=== PATIENT | male | born 1995 | race American Indian/Alaskan Native ===

== ENCOUNTER 2016-11-18 23:16 | Emergency (ER) | payer SELFPAY | END 2016-11-19 01:35 | disposition left against medical advice (07) | LOC: ED 23:16 | DX: Z76.0 Encounter for issue of repeat prescription (principal); Z53.21 Procedure and treatment not carried out due to patient leaving prior to being seen by health care provider ==

== ENCOUNTER 2016-11-19 16:06 | Emergency (ER) | payer SELFPAY ==
[2016-11-19 16:18] VITALS: BP 125/73
--- NOTE | 2016-11-19 18:59 | Emergency Department Report ---
HPI - General Chief Complaint: Medical Clearance Time Seen by Provider: 11/19/16 17:39 - HPI HPI: 21-year-old male presents today for refill of Prozac, Risperdal and trazodone. Patient was seen at [facility] on 10/08/2016 and was started on the above-listed medications. Patient states he does not currently have a psychiatrist or psychologist he follows up with. Denies any medical complaints. Denies fever, chills, nausea, vomiting, chest pain, shortness of breath, abdominal pain. ED Past Medical Hx - Past Medical History Previous Medical History?: Yes Hx Psychiatric Treatment: Yes (PTSD,Bipolar, Schizophrenia, Anxiety) - Surgical History Past Surgical History?: Yes Additional Surgical History: Impacted [place] Teeth Removal - Social History Smoking Status: Current Every Day Smoker Substance Use Type: Alcohol - Medications Home Medications: Home Medications Medication Instructions Recorded Confirmed Last Taken Type FLUoxetine [PROzac] 20 mg PO QDAY #30 capsule 11/19/16 Unknown Rx risperiDONE [RisperDAL] 2 mg PO QDAY #30 tablet 11/19/16 Unknown Rx traZODone [Desyrel] 100 mg PO QHS #30 tablet 11/19/16 Unknown Rx ED Review of Systems ROS: Stated complaint: RX REFILL Other details as noted in HPI Constitutional: denies: chills, fever, malaise Eyes: denies: eye pain ENT: denies: ear pain, throat pain, congestion Respiratory: denies: cough, shortness of breath, wheezing Cardiovascular: denies: chest pain, palpitations Endocrine: no symptoms reported Gastrointestinal: denies: abdominal pain, nausea, vomiting Neurological: denies: headache, weakness Physical Exam - Physical Exam Vital Signs: Vital Signs 11/19/16 16:14 Temperature 97.7 F Pulse Rate 100 H Respiratory 20 Rate Blood Pressure 125/73 O2 Sat by Pulse 98 Oximetry Physical Exam: GENERAL: The patient is well-developed and well-nourished. Patient is in NAD. HEAD: Normocephalic. Atraumatic. CHEST/LUNGS: Clear to auscultation throughout. HEART/CARDIOVASCULAR: Regular rate and rhythm. ABDOMEN: Abdomen is soft, nontender. Bowel sounds normoactive. No guarding or rebound tenderness. EXTREMITIES: Peripheral pulses intact. Capillary refill less than 2 seconds. NEURO: Alert and oriented x 3. Normal gait. ED Course Vital Signs 11/19/16 16:14 Temperature 97.7 F Pulse Rate 100 H Respiratory 20 Rate Blood Pressure 125/73 O2 Sat by Pulse 98 Oximetry ED Medical Decision Making - Lab Data Vital Signs 11/19/16 16:14 Temperature 97.7 F Pulse Rate 100 H Respiratory 20 Rate Blood Pressure 125/73 O2 Sat by Pulse 98 Oximetry - Medical Decision Making 21-year-old male presents today for a medication refill of Prozac, Risperdal and trazodone. Patient is in no acute distress at this time. He will be discharged home and is encouraged to follow up with a primary care provider. Consulted with Dr. Salguero, his medications will be refilled today. He is encouraged to return to the emergency room for any worsening symptoms. Critical care attestation.: If time is entered above; I have spent that time in minutes in the direct care of this critically ill patient, excluding procedure time. ED Disposition Clinical Impression: Medication refill Disposition: DISCHARGED TO HOME OR SELFCARE Is pt being admited?: No Does the pt Need Aspirin: No Condition: Stable Additional Instructions: Follow-up with primary care provider. Return to the emergency department if symptoms worsen. Prescriptions: traZODone [Desyrel] 100 mg PO QHS #30 tablet FLUoxetine [PROzac] 20 mg PO QDAY #30 capsule risperiDONE [RisperDAL] 2 mg PO QDAY #30 tablet Referrals: APOORVA BARAJAS MD [Primary Care Provider] - 3-5 Days SEA TIAN MD [Referring] - 3-5 Days ELIS JONES MD [Staff Physician] - 3-5 Days Forms: Work/School Release Form(ED) Time of Disposition: 18:57
== END 2016-11-19 19:12 | disposition home or self-care (01) ==
LOC: ED 16:06
DX: Z76.0 Encounter for issue of repeat prescription (principal); F31.9 Bipolar disorder, unspecified; F20.9 Schizophrenia, unspecified; F17.200 Nicotine dependence, unspecified, uncomplicated
CPT/HCPCS: 99281

== ENCOUNTER 2017-03-18 01:15 | Emergency (ER) | payer SELFPAY ==
[2017-03-18 01:46] VITALS: BP 132/75
== END 2017-03-18 01:45 | disposition left against medical advice (07) ==
LOC: EEVIPCON 01:15 → ED 01:15
DX: R06.7 Sneezing (principal); L29.9 Pruritus, unspecified; Z53.21 Procedure and treatment not carried out due to patient leaving prior to being seen by health care provider

== ENCOUNTER 2017-03-24 09:59 | Emergency (ER) | payer SELFPAY ==
--- NOTE | 2017-03-24 11:38 | Emergency Department Report ---
ED Rash HPI - HPI Chief Complaint: Pain General Stated Complaint: CHEST PAIN Time Seen by Provider: 03/24/17 10:43 Duration: week Location: Neck, Chest, Back, Abdomen, Lower Extremities Suspected Cause: Insect Rash Symptoms: Yes Itching, No Facial Swelling, No Tongue/Oral Swelling, No Breathing Difficulties, No Choking Sensation, No Wheezing/Dyspnea, No Peeling, No Blistering, No Fever, No Lightheaded, No Malaise, No Myalgias Severity: mild ED Review of Systems ROS: Stated complaint: CHEST PAIN Other details as noted in HPI Comment: Unobtainable due to pts medical conditions Constitutional: no symptoms reported, see HPI Eyes: as per HPI ENT: as per HPI Respiratory: no symptoms reported, see HPI Cardiovascular: as per HPI Endocrine: no symptoms reported, see HPI Gastrointestinal: as per HPI Genitourinary: as per HPI Musculoskeletal: as per HPI Skin: as per HPI, rash Neurological: as per HPI Psychiatric: as per HPI Hematological/Lymphatic: as per HPI ED Past Medical Hx - Past Medical History Previous Medical History?: Yes Hx Psychiatric Treatment: Yes (PTSD,Bipolar, Schizophrenia, Anxiety) - Surgical History Past Surgical History?: Yes Additional Surgical History: Impacted [place] Teeth Removal; jaw sx 2016 - Social History Smoking Status: Current Some Day Smoker Substance Use Type: Alcohol - Medications Home Medications: Home Medications Medication Instructions Recorded Confirmed Last Taken Type FLUoxetine [PROzac] 20 mg PO QDAY #30 capsule 11/19/16 Unknown Rx risperiDONE [RisperDAL] 2 mg PO QDAY #30 tablet 11/19/16 Unknown Rx traZODone [Desyrel] 100 mg PO QHS #30 tablet 11/19/16 Unknown Rx Permethrin [Elimite] 60 gm TP ONCE #1 cream..g. 03/24/17 Unknown Rx Rash Exam - Exam General: Vital signs noted. No distress. Alert and acting appropriately. HEENT: No Periorbital Edema, No Conjuctival Injection, No Chemosis, No Perioral Edema, No Tongue Edema, No Uvular Edema, No Compromised Airway, No Drooling Lungs: Yes Good Air Exchange, No Wheezes, No Ronchi, No Stridor, No Cough, No Labored Respirations, No Retractions, No Use of Accessory Muscles, No Other Abnormal Lung Sounds Heart: Yes Regular, No Murmur Skin: Yes Erythema, Yes Other (known bed bugs), No Urticarial Rash, No Maculopapular Rash, No Morbilliform rash, No Bulla(e), No Excoriations, No Weeping, No Tenderness, No Edema, No Encrustations ED Course Vital Signs 03/24/17 10:05 Temperature 97.7 F Pulse Rate 72 Respiratory 16 Rate Blood Pressure 104/77 O2 Sat by Pulse 96 Oximetry Critical care attestation.: If time is entered above; I have spent that time in minutes in the direct care of this critically ill patient, excluding procedure time. ED Disposition Clinical Impression: Scabies Disposition: DC-01 TO HOME OR SELFCARE Is pt being admited?: No Does the pt Need Aspirin: No Condition: Stable Instructions: Insect Bite or Sting (ED), Scabies (ED) Additional Instructions: clean home and clothes Prescriptions: Permethrin [Elimite] 60 gm TP ONCE #1 cream..g. Referrals: PRIMARY CARE, [Primary Care Provider] - 3-5 Days Forms: Work/School Release Form(ED) Time of Disposition: 11:37
[2017-03-24 11:48] VITALS: BP 118/70
== END 2017-03-24 12:06 | disposition home or self-care (01) ==
LOC: ED 09:59
DX: B86 Scabies (principal); F17.200 Nicotine dependence, unspecified, uncomplicated
CPT/HCPCS: 99282

== ENCOUNTER 2018-11-29 15:55 | Emergency (ER) | payer OTHER ==
--- NOTE | 2018-11-29 16:43 | Emergency Department Report ---
Chief Complaint: Chest Pain Stated Complaint: CHEST PAIN Time Seen by Provider: 11/29/18 16:37 - HPI History of Present Illness: This is a 23 y.o. male that presents to the ER with chest pain x 2 weeks. Current cigar smoker 1 a day. - Exam Vital Signs: Vital Signs 11/29/18 16:37 Temperature 98.1 F Pulse Rate 80 Respiratory 20 Rate Blood Pressure 136/66 O2 Sat by Pulse 98 Oximetry MSE screening note: Focused history and physical exam performed. Due to findings the following was ordered: CXR and EKG ACC for further evaluation. ED Disposition for MSE Condition: Stable
--- NOTE | 2018-11-29 18:24 | XRay Report ---
PROCEDURE: XR CHEST ROUTINE 2V TECHNIQUE: PA and lateral views of the chest HISTORY: Chest Pain COMPARISONS: None FINDINGS: There is no evidence of infiltrate, pneumothorax or pleural fluid collection. The cardiomediastinal silhouette is normal in appearance. The bony structures are unremarkable. IMPRESSION: 1. Normal study. This document is electronically signed by Aura Thakkar MD., November 29 2018 06:21:53 PM ET
--- NOTE | 2018-11-29 20:39 | Emergency Department Report ---
- General Chief Complaint: Chest Pain Stated Complaint: CHEST PAIN Time Seen by Provider: 11/29/18 16:37 Source: patient Mode of arrival: Ambulatory Limitations: No Limitations - History of Present Illness Initial Comments: 23-year-old -German male reports he was department complaining of a three-week history of waxing and waning cough, congestion, sore throat with occasional nausea. No fever, chills, sweats, palpitations MD Complaint: cough, sore throat, rhinorrhea, nasal congestion -: week(s) (3) Severity: mild Quality: dull Consistency: constant Improves With: nothing Worsens With: nothing Associated Symptoms: cough. denies: myalgias, diaphoresis, rhinorrhea, nasal congestion, shortness of breath, vomiting, diarrhea, confusion, right sweats, weight loss, hoarseness, ear pain - Related Data Previous Rx's Medication Instructions Recorded Last Taken Type FLUoxetine [PROzac] 20 mg PO QDAY #30 capsule 11/19/16 Unknown Rx risperiDONE [RisperDAL] 2 mg PO QDAY #30 tablet 11/19/16 Unknown Rx traZODone [Desyrel] 100 mg PO QHS #30 tablet 11/19/16 Unknown Rx Permethrin [Elimite] 60 gm TP ONCE #1 cream..g. 03/24/17 Unknown Rx Azithromycin [Zithromax] 500 mg PO QDAY #3 tablet 11/29/18 Unknown Rx guaiFENesin/CODEINE [Robitussin AC] 5 ml PO Q6H PRN #120 ml 11/29/18 Unknown Rx Allergies Allergy/AdvReac Type Severity Reaction Status Date / Time No Known Allergies Allergy Verified 11/29/18 16:37 ED Review of Systems ROS: Stated complaint: CHEST PAIN Other details as noted in HPI Constitutional: denies: chills, fever Eyes: denies: eye pain, eye discharge, vision change ENT: denies: ear pain, throat pain Respiratory: denies: cough, shortness of breath, wheezing Cardiovascular: denies: chest pain, palpitations Endocrine: no symptoms reported Gastrointestinal: denies: abdominal pain, nausea, diarrhea Genitourinary: denies: urgency, dysuria Musculoskeletal: denies: back pain, joint swelling, arthralgia Skin: denies: rash, lesions Neurological: denies: headache, weakness, paresthesias Psychiatric: denies: anxiety, depression Hematological/Lymphatic: denies: easy bleeding, easy bruising ED Past Medical Hx - Past Medical History Hx Psychiatric Treatment: Yes (PTSD,Bipolar, Schizophrenia, Anxiety) - Surgical History Additional Surgical History: Impacted [place] Teeth Removal; jaw sx 2016 - Social History Smoking Status: Current Every Day Smoker Substance Use Type: None - Medications Home Medications: Home Medications Medication Instructions Recorded Confirmed Last Taken Type FLUoxetine [PROzac] 20 mg PO QDAY #30 capsule 11/19/16 Unknown Rx risperiDONE [RisperDAL] 2 mg PO QDAY #30 tablet 11/19/16 Unknown Rx traZODone [Desyrel] 100 mg PO QHS #30 tablet 11/19/16 Unknown Rx Permethrin [Elimite] 60 gm TP ONCE #1 cream..g. 03/24/17 Unknown Rx Azithromycin [Zithromax] 500 mg PO QDAY #3 tablet 11/29/18 Unknown Rx guaiFENesin/CODEINE [Robitussin AC] 5 ml PO Q6H PRN #120 ml 11/29/18 Unknown Rx ED Physical Exam - General Limitations: No Limitations General appearance: alert, in no apparent distress - Head Head exam: Present: atraumatic, normocephalic - Eye Eye exam: Present: normal appearance, PERRL, EOMI Pupils: Present: normal accommodation - ENT ENT exam: Present: normal exam, normal orophraynx, mucous membranes moist, other (extremities very swollen and erythematous. There is no exudate. Tongue and uvula are midline. This is nasals cavity is congested as well, right greater than left, small effusion behind the right tympanic membrane.) - Neck Neck exam: Present: normal inspection, full ROM - Respiratory Respiratory exam: Present: normal lung sounds bilaterally. Absent: respiratory distress, rales, rhonchi - Cardiovascular Cardiovascular Exam: Present: regular rate, normal rhythm. Absent: systolic murmur, diastolic murmur, rubs, gallop - GI/Abdominal GI/Abdominal exam: Present: soft, normal bowel sounds - Rectal Rectal exam: Present: deferred - Extremities Exam Extremities exam: Present: normal inspection - Back Exam Back exam: Present: normal inspection - Neurological Exam Neurological exam: Present: alert, oriented X3 - Psychiatric Psychiatric exam: Present: normal affect, normal mood - Skin Skin exam: Present: warm, dry, intact, normal color. Absent: rash ED Course Vital Signs 11/29/18 11/29/18 16:37 20:51 Temperature 98.1 F Pulse Rate 80 88 Respiratory 20 16 Rate Blood Pressure 136/66 Blood Pressure 122/71 [Left] O2 Sat by Pulse 98 99 Oximetry Critical care attestation.: If time is entered above; I have spent that time in minutes in the direct care of this critically ill patient, excluding procedure time. ED Disposition Clinical Impression: Pharyngitis, Cough Disposition: DC-01 TO HOME OR SELFCARE Is pt being admited?: No Does the pt Need Aspirin: No Condition: Stable Instructions: Upper Respiratory Infection (ED), Cold Symptoms (ED) Prescriptions: guaiFENesin/CODEINE [Robitussin AC] 5 ml PO Q6H PRN #120 ml PRN Reason: Cough Azithromycin [Zithromax] 500 mg PO QDAY #3 tablet Referrals: JEANNETTE DELGADO MD [Primary Care Provider] - 3-5 Days Forms: Work/School Release Form(ED)
[2018-11-29 20:51] VITALS: BP 122/71
== END 2018-11-29 20:51 | disposition home or self-care (01) ==
LOC: ED 15:55
DX: J02.9 Acute pharyngitis, unspecified (principal); R05 Cough; F31.9 Bipolar disorder, unspecified; F20.9 Schizophrenia, unspecified; F17.200 Nicotine dependence, unspecified, uncomplicated; F43.10 Post-traumatic stress disorder, unspecified; Z79.899 Other long term (current) drug therapy
CPT/HCPCS: 71046; 93005; 93010; 99282

== ENCOUNTER 2020-09-06 01:50 | Emergency (ER) | payer SELFPAY ==
--- NOTE | 2020-09-06 02:28 | XRay Report ---
CHEST 2 VIEWS INDICATION / CLINICAL INFORMATION: Productive cough for 2 weeks. COMPARISON: 04/29/19. FINDINGS: SUPPORT DEVICES: None. HEART / MEDIASTINUM: The heart size and pulmonary vasculature are normal. LUNGS / PLEURA: No significant pulmonary or pleural abnormality. No pneumothorax. ADDITIONAL FINDINGS: No significant additional findings. IMPRESSION: No acute abnormality or significant change. There is no evidence of pneumonia. Signer Name: Tim Martinez MD Signed: 09/06/2020 2:23 AM Workstation Name: [id number]
--- NOTE | 2020-09-06 02:35 | Emergency Department Report ---
- General Chief Complaint: Extremity Injury, Upper Stated Complaint: BACK HURTS/CANT GET RID OF COLD Source: patient Mode of arrival: Ambulatory Limitations: No Limitations - History of Present Illness Initial Comments: Patient is a 25-year-old -[place] male with a history of PTSD, anxiety and depression, bipolar disorder and schizophrenia who presents to the ED with complaint of acute onset persistent nasal and sinus congestion, frontal sinus pressure, persistent dry cough, diffuse body aches and pains and lack of appetite for the last 2 weeks, worse in the last 5 days. Patient states that he tested positive for COVID-19 viral infection about 2 months ago and thinks that his current symptoms may be due to another COVID-19 viral infection. Patient states that no one else at home has had similar symptoms except his daughter that also has had upper respiratory infection symptoms. Patient denies dizziness, syncope, chest pain, shortness of breath, sore throat, nausea and vomiting or diarrhea, abdominal pain, change in vision, dysuria, hematuria, urinary frequency and urgency her back pain. MD Complaint: cough, sore throat, rhinorrhea, nasal congestion, sinus pain, other (Diffuse body aches and pains) -: Sudden, week(s) (2) Severity: moderate Severity scale (0 -10): 6 Quality: dull, aching Consistency: constant Improves With: nothing Worsens With: nothing Context: sick contacts Associated Symptoms: denies other symptoms, fever, chills, myalgias, headache, rhinorrhea, nasal congestion, cough. denies: diaphoresis, sore throat, stiff neck, chest pain, shortness of breath, abdominal pain, nausea, vomiting, diarrhea, dysuria, rash, confusion, weight loss, hoarseness, ear pain, other Treatments Prior to Arrival: "cold medicine" - Related Data Previous Rx's Medication Instructions Recorded Last Taken Type FLUoxetine [PROzac] 20 mg PO QDAY #30 capsule 11/19/16 Unknown Rx risperiDONE [RisperDAL] 2 mg PO QDAY #30 tablet 11/19/16 Unknown Rx traZODone [Desyrel] 100 mg PO QHS #30 tablet 11/19/16 Unknown Rx Permethrin [Elimite] 60 gm TP ONCE #1 cream..g. 03/24/17 Unknown Rx Azithromycin [Zithromax] 500 mg PO QDAY #3 tablet 11/29/18 Unknown Rx guaiFENesin/CODEINE [Robitussin AC] 5 ml PO Q6H PRN #120 ml 11/29/18 Unknown Rx Acetaminophen [Tylenol] 500 mg PO Q6HR PRN #30 tablet 09/06/20 Unknown Rx Amoxicillin [Trimox CAP] 500 mg PO Q8H #30 capsule 09/06/20 Unknown Rx Benzonatate [Tessalon Perles] 100 mg PO Q8HR #30 capsule 09/06/20 Unknown Rx Cetirizine HCl [Zyrtec 10mg tab] 10 mg PO DAILY #30 tablet 09/06/20 Unknown Rx Allergies Allergy/AdvReac Type Severity Reaction Status Date / Time No Known Allergies Allergy Verified 11/29/18 16:37 ED Review of Systems ROS: Stated complaint: BACK HURTS/CANT GET RID OF COLD Other details as noted in HPI Constitutional: malaise. denies: chills, fever Eyes: denies: eye pain, eye discharge, vision change ENT: congestion, other (Frontal sinus pressure and headache). denies: ear pain, throat pain Respiratory: cough. denies: shortness of breath, wheezing Cardiovascular: denies: chest pain, palpitations Endocrine: no symptoms reported Gastrointestinal: denies: abdominal pain, nausea, vomiting, diarrhea Genitourinary: denies: urgency, dysuria Musculoskeletal: denies: back pain, joint swelling, arthralgia Skin: denies: rash, lesions Neurological: headache. denies: weakness, paresthesias Psychiatric: denies: anxiety, depression Hematological/Lymphatic: denies: easy bleeding, easy bruising ED Past Medical Hx - Past Medical History Previous Medical History?: Yes Hx Psychiatric Treatment: Yes (PTSD,Bipolar, Schizophrenia, Anxiety) Additional medical history: heart murmur - Surgical History Past Surgical History?: Yes Additional Surgical History: Impacted [place] Teeth Removal; jaw sx 2016 - Social History Smoking Status: Current Every Day Smoker - Medications Home Medications: Home Medications Medication Instructions Recorded Confirmed Last Taken Type FLUoxetine [PROzac] 20 mg PO QDAY #30 capsule 11/19/16 Unknown Rx risperiDONE [RisperDAL] 2 mg PO QDAY #30 tablet 11/19/16 Unknown Rx traZODone [Desyrel] 100 mg PO QHS #30 tablet 11/19/16 Unknown Rx Permethrin [Elimite] 60 gm TP ONCE #1 cream..g. 03/24/17 Unknown Rx Azithromycin [Zithromax] 500 mg PO QDAY #3 tablet 11/29/18 Unknown Rx guaiFENesin/CODEINE [Robitussin AC] 5 ml PO Q6H PRN #120 ml 11/29/18 Unknown Rx Acetaminophen [Tylenol] 500 mg PO Q6HR PRN #30 tablet 09/06/20 Unknown Rx Amoxicillin [Trimox CAP] 500 mg PO Q8H #30 capsule 09/06/20 Unknown Rx Benzonatate [Tessalon Perles] 100 mg PO Q8HR #30 capsule 09/06/20 Unknown Rx Cetirizine HCl [Zyrtec 10mg tab] 10 mg PO DAILY #30 tablet 09/06/20 Unknown Rx ED Physical Exam - General Limitations: No Limitations General appearance: alert, in no apparent distress - Head Head exam: Present: atraumatic, normocephalic, normal inspection - Eye Eye exam: Present: normal appearance, PERRL, EOMI Pupils: Present: normal accommodation - ENT ENT exam: Present: normal orophraynx, mucous membranes moist, TM's normal bilaterally, normal external ear exam, other (Grossly congested nasal passages) - Neck Neck exam: Present: normal inspection, full ROM. Absent: tenderness, meningismus, lymphadenopathy, thyromegaly - Respiratory Respiratory exam: Present: normal lung sounds bilaterally. Absent: respiratory distress, wheezes, rales, rhonchi, stridor, chest wall tenderness, accessory muscle use, decreased breath sounds, prolonged expiratory - Cardiovascular Cardiovascular Exam: Present: normal rhythm, tachycardia, normal heart sounds. Absent: systolic murmur, diastolic murmur, rubs, gallop - GI/Abdominal GI/Abdominal exam: Present: soft, normal bowel sounds. Absent: tenderness, guarding, rebound, hyperactive bowel sounds, hypoactive bowel sounds, organomegaly - Extremities Exam Extremities exam: Present: normal inspection, full ROM, normal capillary refill - Back Exam Back exam: Present: normal inspection, full ROM. Absent: tenderness, CVA tenderness (R), CVA tenderness (L), muscle spasm, paraspinal tenderness, vertebral tenderness - Neurological Exam Neurological exam: Present: alert, oriented X3, CN II-XII intact, normal gait, reflexes normal - Psychiatric Psychiatric exam: Present: normal affect, normal mood, anxious - Skin Skin exam: Present: warm, dry, intact, normal color. Absent: rash ED Course Vital Signs 09/06/20 09/06/20 02:00 03:02 Temperature 99.1 F Pulse Rate 111 H 98 H Respiratory 16 20 Rate Blood Pressure 148/82 Blood Pressure 149/80 [Right] O2 Sat by Pulse 95 98 Oximetry ED Medical Decision Making - Radiology Data Radiology results: report reviewed Chest x-ray shows no acute cardiopulmonary abnormalities or pneumonitis. - Medical Decision Making This is a 25-year-old -[place] male with a history of PTSD, anxiety and depression, bipolar disorder and schizophrenia who presents to the ED with complaint of acute onset persistent nasal and sinus congestion, frontal sinus pressure, persistent dry cough, diffuse body aches and pains and lack of appetite for the last 2 weeks, worse in the last 5 days. Patient states that he tested positive for COVID-19 viral infection about 2 months ago and thinks that his current symptoms may be due to another COVID-19 viral infection. Patient states that no one else at home has had similar symptoms except his daughter that also has had upper respiratory infection symptoms. In the ED, patient is alert and oriented x3 and is not in any distress, afebrile and tachycardic and with oxygen saturation of 95% to 97% in room air. Chest x-ray shows no acute cardiopulmonary abnormalities or pneumonitis. On reevaluation, patient tachycardia resolved and patient will discharge home on medications and advised to follow-up with his primary care physician in 7 to 10 days for reevaluation or return to the ED immediately if symptoms get worse. - Differential Diagnosis Bronchitis; URI; pneumonia; influenza; viral syndrome; COVID-19 Critical care attestation.: If time is entered above; I have spent that time in minutes in the direct care of this critically ill patient, excluding procedure time. ED Disposition Clinical Impression: Acute upper respiratory infection, Acute non-recurrent frontal sinusitis Acute bronchitis Qualifiers: Bronchitis organism: other organism Qualified Code(s): J20.8 - Acute bronchitis due to other specified organisms Disposition: DC-01 TO HOME OR SELFCARE Is pt being admited?: No Does the pt Need Aspirin: No Condition: Stable Instructions: Sinusitis, Adult, [id number], Acute Bronchitis, Adult, [id number], Upper Respiratory Infection, Adult, [id number], Acute Bronchitis (ED) Additional Instructions: Take medication with food, drink plenty of fluids and follow-up with your primary care physician in 7 to 10 days for reevaluation. Return to the ED immediately if your symptoms get worse. Prescriptions: Acetaminophen [Tylenol] 500 mg PO Q6HR PRN #30 tablet PRN Reason: Pain , Severe (7-10) Benzonatate [Tessalon Perles] 100 mg PO Q8HR #30 capsule Amoxicillin [Trimox CAP] 500 mg PO Q8H #30 capsule Cetirizine HCl [Zyrtec 10mg tab] 10 mg PO DAILY #30 tablet Referrals: [facility] [Provider Group] - 7-10 days Time of Disposition: 02:37 Print Language: MOZAMBICAN
[2020-09-06 03:03] VITALS: BP 149/80
== END 2020-09-06 03:34 | disposition home or self-care (01) ==
LOC: ED 01:50
DX: J06.9 Acute upper respiratory infection, unspecified (principal); J01.10 Acute frontal sinusitis, unspecified; J20.9 Acute bronchitis, unspecified; F41.9 Anxiety disorder, unspecified; F25.0 Schizoaffective disorder, bipolar type; F17.200 Nicotine dependence, unspecified, uncomplicated; Z98.890 Other specified postprocedural states; Z79.899 Other long term (current) drug therapy
CPT/HCPCS: 71046

== ENCOUNTER 2020-10-11 23:34 | Emergency (ER) | payer SELFPAY ==
--- NOTE | 2020-10-12 01:32 | XRay Report ---
CHEST 2 VIEWS INDICATION: pain. COMPARISON: 09/06/2020. FINDINGS: Support devices: None. Heart: Within normal limits. Lungs/Pleura: No acute air space or interstitial disease. No significant pleural effusion. IMPRESSION: No acute findings. Signer Name: Skyler Guerra MD Signed: 10/12/2020 1:27 AM Workstation Name: [id number]
[2020-10-12 01:36] LABS: Basophils # (Auto) 0.1 K/mm3 (0.0-0.1); Basophils % (Auto) 0.6 % (0.0-1.8); Eosinophils # (Auto) 0.2 K/mm3 (0.0-0.4); Eosinophils % (Auto) 2.2 % (0.0-4.3); Hematocrit 39.1 % (35.5-45.6); Hemoglobin 13.8 gm/dl (11.8-15.2); Lymphocytes # (Auto) 2.5 K/mm3 (1.2-5.4); Lymphocytes % (Auto) 23.6 % (13.4-35.0); Mean Corpuscular HGB Conc 35 % (32-34); Mean Corpuscular Volume 88 fl (84-94); Monocytes # (Auto) 0.7 K/mm3 (0.0-0.8); Monocytes % (Auto) 6.2 % (0.0-7.3); Platelet Count 254 K/mm3 (140-440); Red Blood Count 4.43 M/mm3 (3.65-5.03); Red Cell Distribution Width 12.7 % (13.2-15.2)
[2020-10-12 01:44] LABS: Alanine Aminotransferase 37 units/L (7-56); Albumin 4.5 g/dL (3.9-5); BUN/Creatinine Ratio 14; Blood Urea Nitrogen 14 mg/dL (9-20); Calcium 9.1 mg/dL (8.4-10.2); Hemolysis Index 14
[2020-10-12] MEDS ORDERED: SODIUM CHLORIDE 0.9% 1000 ML 1,000 ML IV ONE ×2 (02:56)
--- NOTE | 2020-10-12 03:15 | Emergency Department Report ---
ED General Adult HPI - General Chief complaint: Pain General Stated complaint: back pain, leg pain, dizzy PUI?: No Time Seen by Provider: 10/12/20 00:56 Source: patient, RN notes reviewed, old records reviewed Mode of arrival: Ambulatory Limitations: No Limitations - History of Present Illness Initial comments: The patient was evaluated in the emergency department for symptoms described in the history of present illness. He/she was evaluated in the context of the global COVID-19 pandemic, which necessitated consideration that the patient might be at risk for infection with the virus that causes COVID-19. Institutional protocols and algorithms that pertain to the evaluation of patients at risk for COVID-19 are in a state of rapid change based on information released by regulatory bodies including the CDC and federal and state organizations. These policies and algorithms were followed during the patient's care in the emergency department. Please note that these policies, procedures and recommendations changed on a rapid basis. The patient is a 25-year-old gentleman. He states he is not taking any prescription medications at this time. He reports he is right-hand dominant, and does a lot of heavy lifting for work. He presents to the ER today with a complaint of nontraumatic right-sided paralumbar and parathoracic back pain, and nontraumatic right posterior hamstring, calf pain. Patient reports that he felt dizzy and lightheaded. He described it as a sensation of "hazy." He did not pass out. The patient reports no travel, surgery, immobilization, oral contraceptive use, and he denies DVT and pulmonary embolism risk factors. He denies chest pain, vomiting or shortness of breath. He reports that he was at work, he had not eaten much, and he feels like he may have had "low blood sugar." He believes that he is eaten since his symptoms have started. He denies fever, loss of taste and smell, vomiting. He denies urinary symptoms. His main complaint is reproducible right paralumbar back pain, which is throbbing and aching, increases with palpation, and decreases with rest, and occasionally radiates down his right lateral thigh, and right posterior hamstring. -: Gradual Location: back, left, lower extremity Quality: aching Consistency: intermittent Improves with: rest Worsens with: movement - Related Data Previous Rx's Medication Instructions Recorded Last Taken Type FLUoxetine [PROzac] 20 mg PO QDAY #30 capsule 11/19/16 Unknown Rx risperiDONE [RisperDAL] 2 mg PO QDAY #30 tablet 11/19/16 Unknown Rx traZODone [Desyrel] 100 mg PO QHS #30 tablet 11/19/16 Unknown Rx Permethrin [Elimite] 60 gm TP ONCE #1 cream..g. 03/24/17 Unknown Rx Azithromycin [Zithromax] 500 mg PO QDAY #3 tablet 11/29/18 Unknown Rx guaiFENesin/CODEINE [Robitussin AC] 5 ml PO Q6H PRN #120 ml 11/29/18 Unknown Rx Acetaminophen [Tylenol] 500 mg PO Q6HR PRN #30 tablet 09/06/20 Unknown Rx Amoxicillin [Trimox CAP] 500 mg PO Q8H #30 capsule 09/06/20 Unknown Rx Benzonatate [Tessalon Perles] 100 mg PO Q8HR #30 capsule 09/06/20 Unknown Rx Cetirizine HCl [Zyrtec 10mg tab] 10 mg PO DAILY #30 tablet 09/06/20 Unknown Rx Acetaminophen [Non-Aspirin Extra 500 mg PO Q6HR PRN #30 tablet 10/12/20 Unknown Rx Strength] Ibuprofen [Motrin] 600 mg PO Q8H PRN #30 tablet 10/12/20 Unknown Rx Allergies Allergy/AdvReac Type Severity Reaction Status Date / Time No Known Allergies Allergy Verified 11/29/18 16:37 ED Review of Systems ROS: Stated complaint: CHEST PAIN; BODY PAIN Other details as noted in HPI Constitutional: denies: fever Eyes: denies: eye discharge ENT: denies: epistaxis Respiratory: denies: cough Cardiovascular: denies: chest pain Gastrointestinal: denies: abdominal pain, nausea, vomiting, hematemesis, melena, hematochezia Genitourinary: denies: dysuria Musculoskeletal: back pain, arthralgia, myalgia Skin: denies: lesions Neurological: weakness, paresthesias. denies: numbness Hematological/Lymphatic: denies: easy bleeding ED Past Medical Hx - Past Medical History Hx Psychiatric Treatment: Yes (PTSD,Bipolar, Schizophrenia, Anxiety) Additional medical history: heart murmur - Surgical History Additional Surgical History: Impacted [place] Teeth Removal; jaw sx 2015 - Social History Smoking Status: Never Smoker - Medications Home Medications: Home Medications Medication Instructions Recorded Confirmed Last Taken Type FLUoxetine [PROzac] 20 mg PO QDAY #30 capsule 11/19/16 Unknown Rx risperiDONE [RisperDAL] 2 mg PO QDAY #30 tablet 11/19/16 Unknown Rx traZODone [Desyrel] 100 mg PO QHS #30 tablet 11/19/16 Unknown Rx Permethrin [Elimite] 60 gm TP ONCE #1 cream..g. 03/24/17 Unknown Rx Azithromycin [Zithromax] 500 mg PO QDAY #3 tablet 11/29/18 Unknown Rx guaiFENesin/CODEINE [Robitussin AC] 5 ml PO Q6H PRN #120 ml 11/29/18 Unknown Rx Acetaminophen [Tylenol] 500 mg PO Q6HR PRN #30 tablet 09/06/20 Unknown Rx Amoxicillin [Trimox CAP] 500 mg PO Q8H #30 capsule 09/06/20 Unknown Rx Benzonatate [Tessalon Perles] 100 mg PO Q8HR #30 capsule 09/06/20 Unknown Rx Cetirizine HCl [Zyrtec 10mg tab] 10 mg PO DAILY #30 tablet 09/06/20 Unknown Rx Acetaminophen [Non-Aspirin Extra 500 mg PO Q6HR PRN #30 tablet 10/12/20 Unknown Rx Strength] Ibuprofen [Motrin] 600 mg PO Q8H PRN #30 tablet 10/12/20 Unknown Rx ED Physical Exam - General Limitations: No Limitations General appearance: alert, in no apparent distress - Head Head exam: Present: atraumatic, normocephalic - Eye Eye exam: Present: normal appearance, PERRL, EOMI, other (Visual acuity intact to finger counting, color perception, reading at a close distance). Absent: nystagmus - ENT ENT exam: Present: normal exam, normal orophraynx, mucous membranes moist, normal external ear exam - Neck Neck exam: Present: normal inspection, full ROM. Absent: tenderness, meningismus - Respiratory Respiratory exam: Present: normal lung sounds bilaterally. Absent: respiratory distress, wheezes, rales, rhonchi, stridor, decreased breath sounds - Cardiovascular Cardiovascular Exam: Present: regular rate, normal rhythm, normal heart sounds. Absent: bradycardia, tachycardia, irregular rhythm, systolic murmur, diastolic murmur, rubs, gallop - GI/Abdominal GI/Abdominal exam: Present: soft, normal bowel sounds. Absent: distended, tenderness, guarding, rebound, rigid, pulsatile mass - Rectal Rectal exam: Present: deferred - Extremities Exam Extremities exam: Present: normal inspection, full ROM, other (2+ pulses noted in the bilateral upper and lower extremities. There is no palpable cord. negative Homans sign. Muscular compartments are soft. The pelvis is stable.). Absent: pedal edema, calf tenderness - Back Exam Back exam: Present: normal inspection, full ROM, paraspinal tenderness. Absent: tenderness, CVA tenderness (R), CVA tenderness (L), vertebral tenderness - Neurological Exam Neurological exam: Present: alert, oriented X3, other (There is no facial droop. The tongue is midline. Extraocular movements are intact bilaterally. There is 5 out of 5 strength in bilateral upper and lower extremities. Sensation is intact to light touch bilateral upper and lower extremities. There is no past- pointing. There is no pronator drift.). Absent: motor sensory deficit - Psychiatric Psychiatric exam: Present: anxious - Skin Skin exam: Present: warm, dry, intact, normal color. Absent: rash ED Course Vital Signs 10/12/20 10/12/20 00:32 03:43 Temperature 98.5 F Pulse Rate 89 68 Respiratory 18 15 Rate Blood Pressure 184/79 Blood Pressure 142/87 [Right] O2 Sat by Pulse 96 100 Oximetry - Reevaluation(s) Reevaluation #1: 10/12/20 04:07 Differential diagnosis, including but not limited to: Musculoskeletal back pain, lumbar radiculopathy, DVT, pulmonary embolism, peripheral neuropathy, general medical examination, orthostasis, vagal event Assessment and plan: 25-year-old gentleman, who is not currently tachycardic, tachypneic or hypoxic, who denies DVT and pulmonary embolism risk factors, who is low risk by Wells criteria for pulmonary embolism and DVT, PERC negative, with resolved elevated blood pressure, with reproducible paralumbar back pain, GCS 15, nonfocal motor examination, and no obvious lower extremity exam evidence of swelling, asymmetry or palpable cord. Suspect musculoskeletal etiology. His examination and history not suggestive of acute cord compression as he has appropriate strength and sensation and downgoing plantar reflexes bilaterally. X-ray of the chest unremarkable, equal pulses in the upper and lower extremities, blood pressure improved, no pulsatile abdominal mass, AAA very unlikely. Patient had a CT scan of the chest at this hospital in 2019, which was negative for pulmonary embolism, as well as aortic dissection. We will narciso t the patient's symptoms, check D-dimer, reassess. Elevated CK reviewed and appreciated. Patient can drink oral fluids to this, and have this rechecked. Do not see indication for IV fluids at this time. Reevaluation #2: 10/12/20 05:39 Patient had an elevated D-dimer. Therefore, CT scan of the chest, lower extremity DVT study were ordered to rule out DVT and pulmonary embolism, given complaint of right lower extremity pain, complaint of dizziness, haziness, question near syncope, with lower/mid back/inferior/posterior thoracic pain. CT scan of the chest negative for acute findings. Lower extremity DVT study negative for acute findings. Blood pressure improved. Patient clinically sober, walking with a steady gait. Patient has not had any episodes of loss of consciousness or syncope in the many hours that he has been here in this emergency room. He feels improved. He can be discharged to follow-up. Return precautions are reviewed. He also endorses marked improvement in his symptoms. He is resting comfortably in his stretcher, and in no acute distress. 10/12/20 05:44 ED Medical Decision Making - Lab Data Result diagrams: 10/12/20 01:06 10/12/20 01:06 Lab Results 10/12/20 10/12/20 Range/Units 01:06 01:06 WBC 10.7 (4.5-11.0) K/mm3 RBC 4.43 (3.65-5.03) M/mm3 Hgb 13.8 (11.8-15.2) gm/dl Hct 39.1 (35.5-45.6) % MCV 88 (84-94) fl MCH 31 (28-32) pg MCHC 35 H (32-34) % RDW 12.7 L (13.2-15.2) % Plt Count 254 (140-440) K/mm3 Lymph % (Auto) 23.6 (13.4-35.0) % [place] % (Auto) 6.2 (0.0-7.3) % Eos % (Auto) 2.2 (0.0-4.3) % Baso % (Auto) 0.6 (0.0-1.8) % Lymph # (Auto) 2.5 (1.2-5.4) K/mm3 [place] # (Auto) 0.7 (0.0-0.8) K/mm3 Eos # (Auto) 0.2 (0.0-0.4) K/mm3 Baso # (Auto) 0.1 (0.0-0.1) K/mm3 Seg Neutrophils % 67.4 (40.0-70.0) % Seg Neutrophils # 7.2 (1.8-7.7) K/mm3 Sodium 138 (137-145) mmol/L Potassium 4.0 (3.6-5.0) mmol/L Chloride 102.3 (98-107) mmol/L Carbon Dioxide 24 (22-30) mmol/L Anion Gap 16 mmol/L BUN 14 (9-20) mg/dL Creatinine 1.0 (0.8-1.3) mg/dL Estimated GFR > 60 ml/min BUN/Creatinine Ratio 14 % Glucose 89 (75-100) mg/dL Calcium 9.1 (8.4-10.2) mg/dL Total Bilirubin 0.20 (0.1-1.2) mg/dL AST 27 (5-40) units/L ALT 37 (7-56) units/L Alkaline Phosphatase 80 (35-129) units/L Total Creatine Kinase 617 H (55-170) units/L Total Protein 6.8 (6.3-8.2) g/dL Albumin 4.5 (3.9-5) g/dL Albumin/Globulin Ratio 2.0 % Vital Signs 10/12/20 10/12/20 00:32 03:43 Temperature 98.5 F Pulse Rate 89 68 Respiratory 18 15 Rate Blood Pressure 184/79 Blood Pressure 142/87 [Right] O2 Sat by Pulse 96 100 Oximetry - EKG Data -: EKG Interpreted by Mo EKG shows normal: sinus rhythm Rate: normal - EKG Data When compared to previous EKG there are: no significant change 10/12/20 04:04 Time of interpretation, 3: 19 a.m. Sinus rhythm, 68 bpm. Normal axis, normal intervals, high left ventricular voltage. This is not a STEMI. The EKG is unchanged from prior EKG from April 2019. - Radiology Data Radiology results: pending, report reviewed, image reviewed CHEST 2 VIEWS INDICATION: pain. COMPARISON: 09/06/2020. FINDINGS: Support devices: None. Heart: Within normal limits. Lungs/Pleura: No acute air space or interstitial disease. No significant pleural effusion. IMPRESSION: No acute findings. Signer Name: Skyler Guerra MD Signed: 10/12/2020 12:27 AM Workstation Name: [id number] CTA CHEST HISTORY: Chest Pain. COMPARISON: 04/29/2019. TECHNIQUE: Routine chest CT angiogram performed utilizing intravenous contrast. MIP/3D reformats were post-processed. CONTRAST: 100 ml of Omnipaque 350 FINDINGS: Heart and Pericardium: No significant abnormality. Pulmonary Arteries: Diagnostic p ulmonary artery opacification. No significant respiratory motion. No pulmonary emboli seen. Thoracic Aorta: Normal in caliber. No dissection flap Lymphatics: No lymphadenopathy by size criteria. Lungs: No significant abnormality. Trachea and Bronchi: No significant abnormality. Osseous Structures: No significant abnormality. Additional Findings: None IMPRESSION: 1. Overall diagnostic examination. Negative for pulmonary embolism. 2. Negative for thoracic aortic dissection or thoracic aortic aneurysm. 3. Negative for pulmonary edema or pneumonia. Signer Name: Skyler Guerra MD Signed: 10/12/2020 4:18 AM Workstation Name: [id number] DUPLEX DOPPLER LOWER EXTREMITY VEINS, RIGHT INDICATION: rle pain swelling. TECHNIQUE: Duplex doppler imaging was performed through the veins of the right l ower extremity using venous compression and other maneuvers. COMPARISON: No relevant prior imaging study available. FINDINGS: Right Common femoral vein: Negative. Right Superficial femoral vein: Negative. Right Popliteal vein: Negative. Right Calf veins: Negative. Additional findings: None.. IMPRESSION: Negative for DVT. Signer Name: Skyler Guerra MD Signed: 10/12/2020 4:23 AM Workstation Name: [id number] Critical care attestation.: If time is entered above; I have spent that time in minutes in the direct care of this critically ill patient, excluding procedure time. ED Disposition Clinical Impression: Lower back pain, Left leg pain, Elevated CK, Dizziness Disposition: DC-01 TO HOME OR SELFCARE Is pt being admited?: No Does the pt Need Aspirin: No Condition: Good Instructions: Acute Back Pain, Adult, Leg Cramps, RICE Therapy for Routine Care of Injuries Additional Instructions: Do not take Metformin medication for the next 2 days, if patient takes this medi cation. Rest, avoid heavy lifting, strenuous physical activities. Please drink at least 6 cups of water per day indefinitely. Take the prescribed pain medications as needed and directed. Make certain to get at least 7 to 8 hours of uninterrupted sleep each day, make certain to eat at least 3 balanced meals per 24 hours. Please follow-up with a primary care doctor within the next week. Please return to the emergency room right away with new pain, worsened pain, migration of pain, projectile vomiting, change in mental status, confusion, inability to tolerate liquid feeds, new, worsened or different symptoms not present on the initial emergency room evaluation. Patient may alternate ice packs, heat packs, to painful areas, in conjunction with rest, ice, compression, elevation therapy as needed. Referrals: MARLI CISNEROS MD [Staff Physician] - 3-5 Days [facility] [Provider Group] - 3-5 Days Forms: Work/School Release Form(ED)
[2020-10-12] MEDS ORDERED: ACETAMINOPHEN 325 MG TAB PO STA (03:27)
[2020-10-12] MEDS ORDERED: KETOROLAC 30 MG/1 ML INJ IM ONE (03:27)
[2020-10-12] MEDS ORDERED: LACTATED RINGERS 1,000 ML IV ONE (04:12)
--- NOTE | 2020-10-12 05:22 | Cat Scan Report ---
CTA CHEST HISTORY: Chest Pain. COMPARISON: 04/29/2019. TECHNIQUE: Routine chest CT angiogram performed utilizing intravenous contrast. MIP/3D reformats wer e post-processed. CONTRAST: 100 ml of Omnipaque 350 FINDINGS: Heart and Pericardium: No significant abnormality. Pulmonary Arteries: Diagnostic pulmonary artery opacification. No significant respiratory motion. No pulmonary emboli seen. Thoracic Aorta: Normal in caliber. No dissection flap Lymphatics: No lymphadenopathy by size criteria. Lungs: No significant abnormality. Trachea and Bronchi: No significant abnormality. Osseous Structures: No significant abnormality. Additional Findings: None IMPRESSION: 1. Overall diagnostic examination. Negative for pulmonary embolism. 2. Negative for thoracic aortic dissection or thoracic aortic aneurysm. 3. Negative for pulmonary edema or pneumonia. Signer Name: Skyler Guerra MD Signed: 10/12/2020 5:18 AM Workstation Name: [id number]
--- NOTE | 2020-10-12 05:28 | Vascular Lab Report ---
DUPLEX DOPPLER LOWER EXTREMITY VEINS, RIGHT INDICATION: rle pain swelling. TECHNIQUE: Duplex doppler imaging was performed through the veins of the right lower extremity using venous comp ression and other maneuvers. COMPARISON: No relevant prior imaging study available. FINDINGS: Right Common femoral vein: Negative. Right Superficial femoral vein: Negative. Right Popliteal vein: Negative. Right Calf veins: Negative. Additional findings: None.. IMPRESSION: Negative for DVT. Signer Name: Skyler Guerra MD Signed: 10/12/2020 5:23 AM Workstation Name: [id number]
[2020-10-12 06:15] VITALS: BP 146/68
== END 2020-10-12 06:10 | disposition home or self-care (01) ==
LOC: ED 23:34
DX: M79.605 Pain in left leg (principal); M54.5 Low back pain; R42 Dizziness and giddiness; R74.8 Abnormal levels of other serum enzymes; F25.0 Schizoaffective disorder, bipolar type; F41.9 Anxiety disorder, unspecified; Z98.890 Other specified postprocedural states; Z79.899 Other long term (current) drug therapy
CPT/HCPCS: 36415; 71046; 71275; 80053; 82550; 85025; 85379; 93005; 93971; 96360; 96372; 99285; J1885; J7120; Q9967